=== PATIENT | female | born 1995 | race Caucasian/White ===

== ENCOUNTER 2017-03-31 11:18 | Emergency (ER) | payer OTHER ==
[2017-03-31] MEDS ORDERED: NS 1,000 ML IV ONE (12:24)
[2017-03-31 12:35] LABS: PLATELET COUNT 325 10^3/uL (150-400)
--- NOTE | 2017-03-31 13:55 | EDPHY ---
General Narrative: CHIEF COMPLAINT: Abdominal pain HISTORY OF PRESENT ILLNESS: Patient complains of 4 days history of abdominal pain. This is left lower quadrant and into the pelvis. [id number] at 1st. Worsen to moderate to severe. Now starting to improve today. Associated with nausea but no vomiting. No vaginal bleeding or discharge. No back pain. No urinary complaints. No CVA tenderness. She was seen by primary care physician on Sunday, and they yoav laboratory studies which revealed leukocytosis. She was seen again yesterday. A pelvic exam was performed yesterday. Urinalysis performed yesterday. Laboratory studies were drawn yesterday. She was contacted today due to persistent leukocytosis and ongoing pain. The physician sent her here for imaging and further evaluation. She has mild pain at this time. No trauma or injury. No other associated complaints or modifying factors. REVIEW OF SYSTEMS: Ten systems reviewed and are negative unless otherwise noted in the HPI PCP: Dr. Peacock SPECIALISTS: None PAST MEDICAL HISTORY: Hemorrhoids with hemorrhoidectomy 2 weeks ago PAST SURGICAL HISTORY: Hemorrhoidectomy, appendectomy SOCIAL HISTORY: Nonsmoker. No illicit substance use. Occasional alcohol. Originally from [place], currently student at [employer] FAMILY HISTORY: Noncontributory EXAMINATION General Appearance: Alert, no distress Head: normocephalic, atraumatic Eyes: Pupils equal and round, no conjunctival pallor or injection ENT, Mouth: Mucous membranes moist Neck: Normal inspection, supple, non-tender Respiratory: Lungs are clear to auscultation Cardiovascular: Regular rate and rhythm Gastrointestinal: Abdomen is soft and nondistended. There is tenderness in left lower quadrant and into the upper part of the pelvis. No guarding. No tympany. No rigidity. No CVA tenderness. Back: non-tender, no bony abnormalities Neurological: A&O, nonfocal, normal gait Skin: Warm and dry, no rash Extremities: Nontender, no pedal edema Psychiatric: Mood and affect normal DIFFERENTIAL DIAGNOSES: Including but not limited to tubo-ovarian abscess, ovarian cyst, torsion, perforated viscous, diverticulitis, colitis, enteritis, cystitis MDM: 12:25 p.m. Forty history of left lower abdominal pelvic pain. She has a leukocytosis of the past to blood draws 1 Sunday and Sunday. Her primary care physician as center here for imaging. Her pain is right at the cusp of the abdominal pelvic margin. I have ordered ultrasound to avoid radiation if possible. If the ultrasound does not reveal a clear etiology, we may need to proceed with CT scan of the abdomen pelvis. She is resting comfortably in no acute distress. 1:30 p.m. Laboratory studies reveal mild leukocytosis which has significantly improved from the 2 previous test this week. Ultrasound is starting at this time. No acute distress. 2:05 p.m. Patient re-evaluated. Ultrasound performed but not yet read by I have updated her regarding laboratory studies. 2:22 p.m. Contacted by radiologist Dr. Servin. Ultrasound of the pelvis is unremarkable for any acute findings. I have re-evaluated the patient. We will proceed with CT scan of the abdomen and pelvis that she was sent here for this by her physician. Patient is comfortable this plan. 3:30 p.m. Contacted by radiologist Dr. Servin. CT scan findings as documented. epiploic appendagitis noted. No other acute findings. 3:45 p.m. I have re-evaluated the patient. I discussed the CT scan findings with her. She is reassured. She continues to feel well. She does have mild pain that is tolerable without any need for narcotics at this time. She is not vomiting. She is tolerating intake by mouth. Vital signs are stable and her laboratory studies are improved from this week. She will be discharged home with instructions for NSAIDs the next few days. She has contact her primary care physician on Sunday. We discussed ED precautions and she is comfortable this plan. She is discharged in stable condition. - Diagnostics Imaging Results: Imaging Impressions Pelvic/Renal Ultrasound 03/31/17 12:24 Impression: Normal ultrasound pelvis. Results called to Rad Lizarraga PA-C, at 2:[address] 03/31/17 14:26 Impression: CT features of epiploic appendagitis in the left lower quadrant mesentery. Results called to Rad Lizarraga PA-C, at 3:30 PM. - History Smoking Status: Never smoked - Objective Vital Signs: Initial Vital Signs Temperature (C) 98.4 F 03/31/17 11:25 Heart Rate 98 03/31/17 11:25 Respiratory Rate 118 H 03/31/17 11:25 Blood Pressure 117/70 03/31/17 11:25 O2 Sat (%) 94 03/31/17 11:25 O2 Delivery Mode Room Air Allergies/Adverse Reactions: Sulfa (Sulfonamide Antibiotics) Allergy (Verified 03/31/17 11:24) Home Medications: Medication Instructions Recorded Aviane-28 Tablet 04/10/15 Laboratory Results: Laboratory Results 03/31/17 11:42 03/31/17 11:42 03/31/17 03/31/17 03/31/17 11:42 11:42 11:42 WBC 9.71 10^3/uL H 10^3/uL (3.80-9.50) RBC 4.48 10^6/uL 10^6/uL (4.18-5.33) Hgb 13.9 g/dL g/dL (12.6-16.3) Hct 40.1 % % (38.0-47.0) MCV 89.5 fL fL (81.5-99.8) MCH 31.0 pg pg (27.9-34.1) MCHC 34.7 g/dL g/dL (32.4-36.7) RDW 11.4 % L % (11.5-15.2) Plt Count 325 10^3/uL 10^3/uL (150-400) MPV 10.0 fL fL (8.7-11.7) Neut % (Auto) 61.3 % % (39.3-74.2) Lymph % (Auto) 29.1 % % (15.0-45.0) [place] % (Auto) 6.1 % % (4.5-13.0) Eos % (Auto) 2.5 % % (0.6-7.6) Baso % (Auto) 0.8 % % (0.3-1.7) Nucleat RBC Rel Count 0.0 % % (0.0-0.2) Absolute Neuts (auto) 5.95 10^3/uL 10^3/uL (1.70-6.50) Absolute Lymphs (auto) 2.83 10^3/uL 10^3/uL (1.00-3.00) Absolute Monos (auto) 0.59 10^3/uL 10^3/uL (0.30-0.80) Absolute Eos (auto) 0.24 10^3/uL 10^3/uL (0.03-0.40) Absolute Basos (auto) 0.08 10^3/uL 10^3/uL (0.02-0.10) Absolute Nucleated RBC 0.00 10^3/uL 10^3/uL (0-0.01) Immature Gran % 0.2 % % (0.0-1.1) Immature Gran # 0.02 10^3/uL 10^3/uL (0.00-0.10) Sodium 143 mEq/L mEq/L (134-144) Potassium 4.6 mEq/L mEq/L (3.5-5.2) Chloride 103 mEq/L mEq/L (97-110) Carbon Dioxide 24 mEq/l mEq/l (22-31) Anion Gap 16 mEq/L mEq/L (8-16) BUN 13 mg/dL mg/dL (7-23) Creatinine 0.7 mg/dL mg/dL (0.6-1.0) Estimated GFR > 60 Glucose 85 mg/dL mg/dL (70-100) Calcium 9.9 mg/dL mg/dL (8.5-10.4) Total Bilirubin 0.4 mg/dL mg/dL (0.1-1.4) Conjugated Bilirubin 0.3 mg/dL mg/dL (0.0-0.5) Unconjugated Bilirubin 0.1 mg/dL mg/dL (0.0-1.1) AST 17 IU/L IU/L (14-46) ALT 25 IU/L IU/L (9-52) Alkaline Phosphatase 56 IU/L IU/L (38-126) Total Protein 7.7 g/dL g/dL (6.3-8.2) Albumin 4.7 g/dL g/dL (3.5-5.0) Lipase 108 IU/L IU/L (23-300) Beta HCG, Qual NEGATIVE Medications Given: Discontinued Medications Sodium Chloride (Ns) 1,000 mls @ 0 mls/hr IV EDNOW ONE; Wide Open PRN Reason: Protocol Stop: 03/31/17 12:25 Last Admin: 03/31/17 12:36 Dose: 1,000 mls Departure - Departure Disposition: Home, Routine, Self-Care Clinical Impression: Epiploic appendagitis Condition: Good Instructions: Acute Abdominal Pain (ED) Additional Instructions: 1. NSAIDs [id number] as we discussed for the next 5-7 days 2. Contact primary care physician Sunday morning for follow-up early next week 3. ED precautions as discussed Referrals: Erum Peacock MD [Primary Care Provider] - As per Instructions
[2017-03-31] MEDS ORDERED: IOPAMIDOL (ISOVUE-300) 100 ML BTL ONE (14:46)
[2017-03-31 15:58] VITALS: BP 112/80; PULSE 78; RESP 18; TEMP 98.4; O2SAT 96
== END 2017-03-31 15:56 | disposition home or self-care (01) ==
DX: K65.9 Peritonitis, unspecified (principal); E86.9 Volume depletion, unspecified
CPT/HCPCS: Q9967